=== PATIENT | female | born 1980 | race Caucasian/White ===

== ENCOUNTER 2022-12-02 07:31 | Day surgery (SDC) | payer OTHER ==
[~2022-12-02] VITALS: Ht 152.4 cm; Wt 91.8 kg
[~2022-12-02 07:31] MED LIST: SODIUM CHLORIDE 0.9% 1,000 ML IV ONE
[2022-12-02] MEDS ORDERED: FentaNYL CITRATE PF 100 MCG/2 ML VIAL ONE (07:55)
[2022-12-02] MEDS ORDERED: MIDAZOLAM HCL 2 MG/2 ML VIAL ONE (07:55)
[2022-12-02] MEDS ORDERED: MethylPREDNISolone SOD SUCC 125 MG/2 ML VIAL IVP ONE (10:00)
[2022-12-02] MEDS ORDERED: MethylPREDNISolone SOD SUCC 125 MG/2 ML VIAL ONE (10:08)
== END 2022-12-02 11:30 | disposition home or self-care (01) ==
LOC: SURGERY 07:31
PROVIDERS: ATTEND Internal Medicine Critical Care Medicine
DX: J38.4 Edema of larynx (principal); B37.0 Candidal stomatitis; Z79.899 Other long term (current) drug therapy
CPT/HCPCS: 31623; 88112; 84703; 87206; 87101; 87220; 87070; 31624; 71045; 87015; J3010; J2250; J2930